=== PATIENT | female | born 1995 | race Caucasian/White ===

== ENCOUNTER 2017-07-10 18:52 | Emergency (ER) | payer BC ==
[~2017-07-10] VITALS: Ht 160 cm; Wt 70.0 kg
[2017-07-10 18:55] VITALS: BP 124/64; PULSE 68; RESP 15; TEMP 98.6; O2SAT 98
[2017-07-10] MEDS ORDERED: PREN29TA PO (19:09)
[2017-07-10] MEDS ORDERED: CELE20TA PO (19:09)
--- NOTE | 2017-07-10 19:09 | PD ---
Physical Exam Time Seen by Provider: 19:08 Narrative 22 y/o female, 6 months , presents for evaluation of congestion/cough for 2 weeks, worse for one week. Some posttussive emesis as well as loose stools. Noted some brbpr in stool this morning. Vital signs reviewed. Seen at triage desk. Awaiting bed placement. Data Data Last Documented VS Vital Signs Date Time Temp Pulse Resp B/P Pulse Ox O2 Delivery O2 Flow Rate FiO2 07/10/17 18:55 98.6 68 15 124/64 98 MDM Medical Record Reviewed: Yes Supervised Visit with [facility]: Bartolome Azul Jul 10, 2017 19:09
[2017-07-10] MEDS ORDERED: ZITHTAB PO (20:30)
--- NOTE | 2017-07-10 20:30 | PD ---
HPI Chief Complaint: GI Complaint Time Seen by Provider: 20:06 Travel History International Travel<30 days: No Contact w/Intl Traveler<30days: No Traveled to known affect area: No History of Present Illness HPI 22-year-old female , approximately 6 months , here for evaluation of nasal congestion, cough, upper respiratory symptoms. Symptoms have been going on for about 2 weeks. She also noticed some bright red blood per rectum this morning. She denies rectal pain. No abdominal pain. No vaginal bleeding or discharge. She states that she has had fevers between 99F and 100F. She follows with an [facility] physician in [place]. PFSH Past Medical History ?: Social History Tobacco Use: No Allergies-Medications (Allergen,Severity, Reaction): Coded Allergies: amoxicillin (Verified Allergy, Severe, Hives, 07/10/17) Penicillins (Verified Allergy, Unknown, 07/10/17) Reported Meds & Prescriptions Reported Meds & Active Scripts Active Zithromax Z-Kameron (Azithromycin) 250 Mg Dspk 250 Mg PO DIRECTED 500 MG (2 tabs) day 1, then 1 tab days 2-5. Reported Plus Iron 29-1 mg ( Vit-Iron Carbonyl) 1 Tab Tab 1 Tab PO DAILY Celexa (Citalopram Hydrobromide) 20 Mg Tab 20 Mg PO DAILY Review of Systems Except as stated in HPI: all other systems reviewed are Neg Physical Exam Narrative GENERAL: Well-developed, well-nourished, comfortable, no acute distress. SKIN: Focused skin assessment warm/dry. HEAD: Atraumatic. Normocephalic. EYES: Pupils equal and round. No scleral icterus. No injection or drainage. ENT: Mucous membranes pink and moist. CARDIOVASCULAR: Regular rate and rhythm. RESPIRATORY: No accessory muscle use. Clear to auscultation. Breath sounds equal bilaterally. GASTROINTESTINAL: Abdomen soft, non-tender, gravid uterus above the umbilicus. MUSCULOSKELETAL: No obvious deformities. No clubbing. No cyanosis. No edema. NEUROLOGICAL: Awake and alert. No obvious cranial nerve deficits. Motor grossly within normal limits. Normal speech. PSYCHIATRIC: Appropriate mood and affect; insight and judgment normal. Data Data Last Documented VS Vital Signs Date Time Temp Pulse Resp B/P Pulse Ox O2 Delivery O2 Flow Rate FiO2 07/10/17 18:55 98.6 68 15 124/64 98 MDM Medical Decision Making Medical Screen Exam Complete: Yes Emergency Medical Condition: Yes Differential Diagnosis URI, bronchitis, pneumonia, hemorrhoids Narrative Course Vital signs reviewed and are within normal limits. Bedside transabdominal ultrasound was performed by me and shows a large IUP with a heart rate of 156 bpm. Patient is refusing rectal exam. Patient is overall very well-appearing. She likely has a viral URI, however symptoms have been going on for 2 weeks. She is allergic to amoxicillin and Keflex, so she will be started on a Z-Kameron which is safe in . She is stable for discharge home with outpatient follow-up with her [facility] physician this week. She was informed on when to return to the emergency department pitcher verbalizes understanding and agreement with plan. Procedures Procedure Narrative Bedside transabdominal ultrasound: Using the curvilinear ultrasound probe, a bedside ultrasound was performed and shows an IUP with a heart rate of 156 bpm. Diagnosis Primary Impression: URI (upper respiratory infection) Qualified Code: J06.9 - Upper respiratory tract infection, unspecified type Additional Impression: Qualified Code: Z3A.49 - More than 42 weeks gestation of Referrals: [facility] 3 days Additional Instructions: Follow-up with your [facility] physician this week. Return to the emergency department for worsening symptoms or any other concerns. Scripts Azithromycin (Zithromax Z-Kameron)250 Mg [id number] Mg PO DIRECTED #1 DSPK Ref 0 500 MG (2 tabs) day 1, then 1 tab days 2-5. Prov:David Joseph MD 07/10/17 Disposition: DISCHARGE HOME Condition: Stable David Joseph MD Jul 10, 2017 20:30
== END 2017-07-10 20:52 | disposition home or self-care (01) ==
LOC: NEPD 18:52
DX: J06.9 Acute upper respiratory infection, unspecified (principal); Z33.1 Pregnant state, incidental; Z3A.24 24 weeks gestation of pregnancy
CPT/HCPCS: 99284

== ENCOUNTER 2018-03-29 15:48 | Emergency (ER) | payer BC ==
[2018-03-29] MEDS: KETOROLAC TROMETHAMINE 60 MG/2 ML (IM) VIAL IM (17:30)
== END 2018-03-29 18:15 | disposition home or self-care (01) ==
LOC: PHEFT 15:48
DX: M25.562 Pain in left knee (principal); X50.9XXA Other and unspecified overexertion or strenuous movements or postures, initial encounter; F32.9 Major depressive disorder, single episode, unspecified; F17.200 Nicotine dependence, unspecified, uncomplicated
CPT/HCPCS: 73564; 99283